=== PATIENT | female | born 1990 | race Caucasian/White ===

== ENCOUNTER 2020-10-15 13:05 | Emergency (ER) | payer OTHER ==
[2020-10-15 13:11] VITALS: BP 123/85; PULSE 89; TEMP 98.5; BMI 30.2
[2020-10-15 13:52] LABS: BASO % 0.5 % (0-2.0); HEMATOCRIT 37.4 % (32.4-45.2); HEMOGLOBIN 12.3 GM/dL (10.7-15.3); LYMPH % 21.3 % (8-40); MCH 24.5 pg (25.7-33.7); MCHC 32.9 g/dl (32.0-36.0); MEAN CELL VOLUME 74.4 fl (80-96); MEAN PLT VOLUME 8.5 fl (7.5-11.1); NEUT % 70.2 % (42.8-82.8); PLATELET COUNT 351 K/MM3 (134-434); RBC 5.03 M/mm3 (3.60-5.2); RDW 15.2 % (11.6-15.6); WHITE BLOOD COUNT 12.3 K/mm3 (4.0-10.0)
[2020-10-15 14:27] LABS: EPI CELLS 33 /uL (0-25.1); HYALINE CASTS 3 /uL (0-3.1); URINE APPEARANCE CLOUDY; URINE BACTERIA 716 /uL (0-1359); URINE BILIRUBIN NEGATIVE (NEGATIVE); URINE COLOR YELLOW; URINE GLUCOSE (UA) NEGATIVE (NEGATIVE); URINE KETONE NEGATIVE (NEGATIVE); URINE LEUK ESTERASE 1+ (NEGATIVE); URINE NITRITE NEGATIVE (NEGATIVE); URINE PROTEIN TRACE (NEGATIVE); URINE UROBILINOGEN 0.2 mg/dL (0.2-1.0); URINE WBC 61 /uL (0-25.8)
[2020-10-15 14:30] LABS: ALBUMIN 4.4 g/dl (3.4-5.0); BLOOD UREA NITROGEN 5.9 mg/dL (7-18); CALCIUM 9.3 mg/dL (8.5-10.1)
[2020-10-15 14:34] LABS: CREATININE 0.5 mg/dL (0.55-1.3)
[2020-10-15 14:36] LABS: BILIRUBIN,TOTAL 0.4 mg/dL (0.2-1); TOT PROT 8.4 g/dl (6.4-8.2)
== END 2020-10-15 16:39 | disposition home or self-care (01) ==
LOC: JERFT 13:05 → JER 13:05 → JERFT 16:39
DX: O20.0 Threatened abortion (principal)
CPT/HCPCS: 36415; 76815; 76817-TC; 80053; 81003; 84702; 85025; 86850; 86900; 86901; 87086; 99284-25

== ENCOUNTER 2020-10-17 12:07 | Emergency (ER) | payer OTHER ==
[2020-10-17 12:15] VITALS: BMI 21.4
[2020-10-17 13:29] LABS: BASO % 0.3 % (0-2.0); EOS % 1.3 % (0-4.5); HEMOGLOBIN 12.1 GM/dL (10.7-15.3); MCH 24.6 pg (25.7-33.7); MCHC 33.5 g/dl (32.0-36.0); MEAN CELL VOLUME 73.6 fl (80-96); MEAN PLT VOLUME 8.4 fl (7.5-11.1); MONO % 7.4 % (3.8-10.2); PLATELET COUNT 358 K/MM3 (134-434); RDW 15.2 % (11.6-15.6); WHITE BLOOD COUNT 14.5 K/mm3 (4.0-10.0)
[2020-10-17] MEDS ORDERED: ACETAMINOPHEN 1000 MG/100 ML VIAL (NON FORMULARY) IVPB ONE (13:34)
[2020-10-17] MEDS ORDERED: SODIUM CHLORIDE 0.9% 1000 ML INFUS.BAG IV ONE (13:34)
[2020-10-17 13:38] LABS: INR 1.12 (0.83-1.09); PROTHROMBIN TIME (PATIENT) 13.7 SEC (9.7-13.0)
[2020-10-17 13:41] LABS: ACTIVATED PTT 29.5 SECONDS (25.2-36.5)
[2020-10-17] MEDS ORDERED: ACETAMINOPHEN INJECTION 100 ML IVPB ONE (14:05)
[2020-10-17 16:47] VITALS: BP 112/68; PULSE 76; TEMP 97.9
== END 2020-10-17 16:48 | disposition home or self-care (01) ==
LOC: JER 12:07
PROC: 3E033NZ Introduction of Analgesics, Hypnotics, Sedatives into Peripheral Vein, Percutaneous Approach (ICD-10-PCS; principal; 2020-10-17)
DX: O20.9 Hemorrhage in early pregnancy, unspecified (principal)
CPT/HCPCS: 36415; 76817-TC; 84702; 85025; 85610; 85730; 86850; 86900; 86901; 99284-25; J0131

== ENCOUNTER 2022-02-23 05:00 | Inpatient (IN) | payer OTHER ==
[2022-02-23 06:27] LABS: BASO % 0.3 % (0-2.0); EOS % 0.4 % (0-4.5); HEMATOCRIT 24.8 % (32.4-45.2); HEMOGLOBIN 7.6 GM/dL (10.7-15.3); LYMPH % 21.6 % (8-40); MCHC 30.6 g/dl (32.0-36.0); MEAN CELL VOLUME 64.1 fl (80-96); MEAN PLT VOLUME 8.3 fl (7.5-11.1); MONO % 8.5 % (3.8-10.2); NEUT % 69.2 % (42.8-82.8); PLATELET COUNT 284 10^3/uL (134-434); RBC 3.87 M/mm3 (3.60-5.2); WHITE BLOOD COUNT 8.2 K/mm3 (4.0-10.0)
[2022-02-23 06:29] LABS: MCH 19.6 pg (25.7-33.7)
[2022-02-23] MEDS ORDERED: ELECTROLYTE-148 SOLN 500 ML IV SCH (06:30)
[2022-02-23] MEDS ORDERED: CITRIC ACID/SODIUM CITRATE 30 ML UNIT-DOSE CUP PO ONE (06:30)
[2022-02-23 06:34] VITALS: BMI 29.9
[2022-02-23 06:34] LABS: INR 1.09 (0.83-1.09); PROTHROMBIN TIME (PATIENT) 12.5 SEC (9.7-13.0)
[2022-02-23 06:36] LABS: ACTIVATED PTT 20.6 SECONDS (25.2-36.5)
[2022-02-23 06:48] LABS: CALCIUM 8.9 mg/dL (8.5-10.1)
[2022-02-23 06:49] LABS: BLOOD UREA NITROGEN 6.2 mg/dL (7-18)
[2022-02-23 06:52] LABS: CREATININE 0.5 mg/dL (0.55-1.3)
[2022-02-23] MEDS ORDERED: ELECTROLYTE-148 SOLN 1,000 ML IV SCH ×2 (07:00→07:15)
[2022-02-23 07:44] LABS: HIV INTERPRETATION NEGATIVE (NEGATIVE)
[2022-02-23] MEDS ORDERED: morphine SULFATE/PF 1 MG/2 ML (2cc Syringe - QUVA) ONE (08:06)
[2022-02-23] MEDS ORDERED: SENNOSIDES/DOCUSATE COMBO (SENNA PLUS) TABLET (UD) PO PRN (08:50)
[2022-02-23] MEDS ORDERED: ACETAMINOPHEN 325 MG TABLET (FP) PO PRN (08:50)
[2022-02-23] MEDS ORDERED: IBUPROFEN 800 MG/8 ML IJ IVPB PRN (08:50)
[2022-02-23] MEDS ORDERED: METHYLERGONOVINE MALEATE 0.2 MG/1 ML AMP IM PRN (08:50)
[2022-02-23] MEDS ORDERED: OXYTOCIN 20 UNITS in 0.9% NS 20 UNIT/1,000 ML INFUS.BAG IV SCH (09:00)
[2022-02-23 10:50] LABS: ANISOCYTOSIS 1+; PLATELET ESTIMATE NORMAL
[2022-02-23] MEDS: FERROUS SO4 325 MG TABLET (FP) PO SCH ×2 (11:28→22:03)
[2022-02-23] MEDS: PRENATAL VITAMINS W/ FOLIC ACID TABLET (FP) PO SCH (11:28)
[2022-02-23] MEDS: OXYTOCIN 20 UNITS in 0.9% NS 20 UNIT/1,000 ML INFUS.BAG IV SCH (16:05)
[2022-02-23] MEDS ORDERED: oxyCODONE HCL 5 MG TABLET PO PRN (20:50)
[2022-02-24] MEDS: OXYTOCIN 20 UNITS in 0.9% NS 20 UNIT/1,000 ML INFUS.BAG IV SCH (00:44)
[2022-02-24 08:03] LABS: BASO % 0.7 % (0-2.0); EOS % 0.3 % (0-4.5); HEMATOCRIT 31.8 % (32.4-45.2); MCH 21.5 pg (25.7-33.7); MCHC 31.3 g/dl (32.0-36.0); MEAN CELL VOLUME 68.7 fl (80-96); MEAN PLT VOLUME 8.2 fl (7.5-11.1); MONO % 7.5 % (3.8-10.2); NEUT % 75.5 % (42.8-82.8); PLATELET COUNT 246 10^3/uL (134-434); RBC 4.63 M/mm3 (3.60-5.2); RDW 21.8 % (11.6-15.6); WHITE BLOOD COUNT 14.3 K/mm3 (4.0-10.0)
[2022-02-24] MEDS ORDERED: BISACODYL 10 MG SUPP.RECT RC PRN (08:50)
[2022-02-24] MEDS ORDERED: DIPHTH,PERTUSS(ACELL),TET 0.5 ML DISP.SYRIN IM ONE (11:30)
[2022-02-24] MEDS ORDERED: FLU VACC QS2022-23(6MOS UP)/PF 60 MCG/0.5 ML SYRINGE IM ONE (11:30)
[2022-02-24] MEDS: FERROUS SO4 325 MG TABLET (FP) PO SCH ×2 (12:02→21:08)
[2022-02-24] MEDS: PRENATAL VITAMINS W/ FOLIC ACID TABLET (FP) PO SCH (12:02)
[2022-02-24] MEDS: IBUPROFEN 600 MG TABLET (FP) PO PRN ×2 (14:10→19:31)
[2022-02-24] MEDS: SIMETHICONE 80 MG TAB.CHEW (FP) PO PRN (19:32)
[2022-02-25] MEDS: PRENATAL VITAMINS W/ FOLIC ACID TABLET (FP) PO SCH (10:03)
[2022-02-25] MEDS: FERROUS SO4 325 MG TABLET (FP) PO SCH ×2 (10:03→21:06)
[2022-02-25] MEDS: IBUPROFEN 600 MG TABLET (FP) PO PRN (20:54)
[2022-02-25] MEDS: SIMETHICONE 80 MG TAB.CHEW (FP) PO PRN (20:55)
[2022-02-26 10:07] LABS: BASO % 0.7 % (0-2.0); EOS % 2.9 % (0-4.5); HEMATOCRIT 34.5 % (32.4-45.2); HEMOGLOBIN 10.6 GM/dL (10.7-15.3); LYMPH % 10.6 % (8-40); MCH 21.7 pg (25.7-33.7); MCHC 30.6 g/dl (32.0-36.0); MEAN CELL VOLUME 70.7 fl (80-96); MONO % 5.6 % (3.8-10.2); NEUT % 80.2 % (42.8-82.8); PLATELET COUNT 271 10^3/uL (134-434); RBC 4.88 M/mm3 (3.60-5.2); RDW 23.1 % (11.6-15.6); WHITE BLOOD COUNT 11.6 K/mm3 (4.0-10.0)
[2022-02-26] MEDS: FERROUS SO4 325 MG TABLET (FP) PO SCH (10:28)
[2022-02-26] MEDS: SIMETHICONE 80 MG TAB.CHEW (FP) PO PRN (10:28)
[2022-02-26] MEDS: IBUPROFEN 600 MG TABLET (FP) PO PRN (10:28)
[2022-02-26] MEDS: PRENATAL VITAMINS W/ FOLIC ACID TABLET (FP) PO SCH (10:28)
[2022-02-26 10:54] LABS: ANISOCYTOSIS 2+; MACROCYTOSIS 1+; TEAR DROP CELLS 1+
[2022-02-26 11:18] VITALS: BP 123/75; PULSE 73; RESP 17; TEMP 97.8
== END 2022-02-26 13:40 | disposition home or self-care (01) | DRG 540 ==
LOC: JLDR 05:00 → J3W 11:00
PROVIDERS: ADMIT Obstetrics & Gynecology; ATTEND Obstetrics & Gynecology
PROC: 10D00Z1 Extraction of Products of Conception, Low, Open Approach (ICD-10-PCS; principal; 2022-02-23)
PROC: 30233N1 Transfusion of Nonautologous Red Blood Cells into Peripheral Vein, Percutaneous Approach (ICD-10-PCS; 2022-02-23)
DX: O34.211 Maternal care for low transverse scar from previous cesarean delivery (principal); N85.8 Other specified noninflammatory disorders of uterus; O99.02 Anemia complicating childbirth; Z3A.37 37 weeks gestation of pregnancy; Z37.0 Single live birth
CPT/HCPCS: 36415; 80048; 85025; 85610; 85730; 86780; 86922; 87389; 88307-TC; 90715; C9803-CS; G0008; P9058; Q2036; U0003; U0005